=== PATIENT | female | born 1970 | race American Indian/Alaskan Native ===

== ENCOUNTER 2021-12-22 08:20 | Emergency (ER) | payer BC ==
--- NOTE | 2021-12-22 23:26 | Emergency Department Report ---
ED Dizziness HPI - General Chief Complaint: Dizziness Stated Complaint: SOB/PALPITATIONS Time Seen by Provider: 12/22/21 23:15 Source: patient Mode of arrival: Ambulatory Limitations: No Limitations - History of Present Illness Initial Comments: Patient is 51 years old female with history of chronic anemia and history of blood transfusion. Patient presented to the ER complaining of dizziness for the last few days associated with lightheadedness. Patient also reported vaginal bleeding on and off for the last few months. Patient stated that she did not follow-up with any concrete swimming pool installer for this issue however she has been seen by bin filler and had an endoscopy and colonoscopy and she was told that all but normal. Patient denies any chest pain or shortness of breath. No headache or ataxia. MD Complaint: dizziness, lightheadedness -: days(s) Timing: gradual onset Description: lightheadedness Improves With: remaining still Associated Symptoms: denies other symptoms - Related Data Allergies Allergy/AdvReac Type Severity Reaction Status Date / Time No Known Allergies Allergy Verified 12/22/21 10:28 ED Review of Systems ROS: Stated complaint: SOB/PALPITATIONS Other details as noted in HPI Comment: All other systems reviewed and negative Constitutional: denies: chills, fever Respiratory: denies: cough, shortness of breath, SOB with exertion Cardiovascular: palpitations. denies: chest pain Gastrointestinal: denies: abdominal pain, nausea, vomiting, diarrhea, const ipation, hematemesis, melena Genitourinary: abnormal menses Neurological: vertigo. denies: headache, weakness, numbness, paresthesias, confusion, abnormal gait ED Past Medical Hx - Past Medical History Additional medical history: anemia - Surgical History Additional Surgical History: tonsilectomy, c section, lumpectomy - Social History Smoking Status: Never Smoker Substance Use Type: Alcohol ED Physical Exam - General Limitations: No Limitations General appearance: alert, in no apparent distress - Head Head exam: Present: atraumatic, normocephalic, normal inspection - Eye Eye exam: Present: normal appearance - ENT ENT exam: Present: normal exam, normal orophraynx, mucous membranes moist - Neck Neck exam: Present: normal inspection, full ROM. Absent: tenderness, meningismus - Respiratory Respiratory exam: Present: normal lung sounds bilaterally - Cardiovascular Cardiovascular Exam: Present: regular rate, normal rhythm, normal heart sounds - GI/Abdominal GI/Abdominal exam: Present: soft, normal bowel sounds. Absent: distended, tenderness, guarding, rebound, rigid, organomegaly, mass, bruit, pulsatile mass, hernia - Extremities Exam Extremities exam: Present: normal inspection, full ROM, normal capillary refill. Absent: tenderness - Back Exam Back exam: Present: normal inspection, full ROM. Absent: CVA tenderness (R), CVA tenderness (L) - Neurological Exam Neurological exam: Present: alert, oriented X3, CN II-XII intact - Psychiatric Psychiatric exam: Present: normal mood - Skin Skin exam: Present: warm, intact, normal color ED Course Vital Signs 12/22/21 12/22/21 12/22/21 10:29 10:39 23:01 Temperature 98.4 F 98.2 F Pulse Rate 81 81 65 Respiratory 18 16 Rate Blood Pressure 179/83 Blood Pressure 179/83 145/91 [Left] O2 Sat by Pulse 100 100 Oximetry 12/23/21 12/23/21 12/23/21 02:00 02:56 03:11 Temperature 98.3 F 98.2 F 98.4 F Pulse Rate 70 59 L 65 Respiratory 14 21 17 Rate Blood Pressure 166/77 190/88 Blood Pressure 139/78 [Left] O2 Sat by Pulse 100 100 100 Oximetry 12/23/21 05:12 Temperature 98.2 F Pulse Rate 60 Respiratory 20 Rate Blood Pressure Blood Pressure 165/82 [Left] O2 Sat by Pulse 98 Oximetry ED Medical Decision Making - Lab Data Result diagrams: 12/22/21 23:27 12/22/21 23:27 - Radiology Data Radiology results: report reviewed - Medical Decision Making Patient is 51 years old female with history of chronic anemia and history of blood transfusion. Patient presented to the ER complaining of dizziness for the last few days associated with lightheadedness. Patient also reported vaginal bleeding on and off for the last few months. Patient stated that she did not follow-up with any concrete swimming pool installer for this issue however she has been seen by bin filler and had an endoscopy and colonoscopy and she was told that all but normal. Patient denies any chest pain or shortness of breath. No headache or ataxia. Patient labs reviewed and showed a hemoglobin of 6.2. Patient received 2 units of PRBC. Pelvic ultrasound showed multiple fibroids. Patient advised to follow-up with her concrete swimming pool installer in the next 2 to 3 days and to return to the ER if she develop any symptoms. Critical Care Time: Yes Critical care time in (mins) excluding proc time.: 35 Critical care attestation.: If time is entered above; I have spent that time in minutes in the direct care of this critically ill patient, excluding procedure time. ED Disposition Clinical Impression: Symptomatic anemia, Uterine fibroid, Vaginal bleeding Disposition: 01 HOME / SELF CARE / HOMELESS Is pt being admited?: No Condition: Stable Instructions: Abnormal Uterine Bleeding, [id number], Blood Transfusion, Adult, Care After, [id number], Uterine Fibroids Referrals: BRENTON REYES MD [Primary Care Provider] - 3-5 Days
--- NOTE | 2021-12-22 23:56 | XRay Report ---
CHEST 1 VIEW 12/22/2021 11:33 PM INDICATION / CLINICAL INFORMATION: Lightheadedness/Dizziness. COMPARISON: None available. FINDINGS: SUPPORT DEVICES: None. HEART / MEDIASTINUM: No significant abnormality. LUNGS / PLEURA: No significant pulmonary or pleural abnormality. No pneumothorax. ADDITIONAL FINDINGS: No significant additional findings. IMPRESSION: 1. No acute findings. Signer Name: James Kendrick DO Signed: 12/22/2021 11:52 PM Workstation Name: [id number]
[2021-12-23 00:09] LABS: Blood Urea Nitrogen 13 mg/dL (7-17); Calcium 9.2 mg/dL (8.4-10.2); Hemolysis Index 0
[2021-12-23 00:13] LABS: BUN/Creatinine Ratio 19
[2021-12-23 00:24] LABS: INR 1.03 (0.87-1.13)
[2021-12-23 00:31] LABS: Mean Corpuscular HGB Conc 28 % (30-34); Platelet Count 382 K/mm3 (140-440)
[2021-12-23 00:32] LABS: Hematocrit 22.1 % (30.3-42.9); Hemoglobin 6.2 gm/dl (10.1-14.3); Mean Corpuscular Volume 54 fl (79-97); Red Cell Distribution Width 20.7 % (13.2-15.2)
[2021-12-23] MEDS ORDERED: SODIUM CHLORIDE 0.9% 500 ML 500 ML IV ONE (00:54)
[2021-12-23 02:40] LABS: Anisocytosis 1+; Total Cells Counted 100
[2021-12-23 02:41] LABS: Hypochromasia 2+
[2021-12-23 02:42] LABS: Bilirubin,Urine NEG (Negative); Blood,Urine SM (Negative); Color,Urine Yellow (Yellow); Mucus,Urine 2+ /HPF; Protein,Urine <15 mg/dL mg/dL (Negative); RBC,Urine < 1.0 /HPF (0.0-6.0); Urobilinogen,Urine < 2.0 mg/dL (<2.0); WBC,Urine < 1.0 /HPF (0.0-6.0)
--- NOTE | 2021-12-23 03:49 | Ultrasound Report ---
ULTRASOUND PELVIS INDICATION / CLINICAL INFORMATION: vaginal bleeding, anemia. TECHNIQUE: Transabdominal. Duplex Color Doppler used: Yes. COMPARISON: None available FINDINGS: UTERUS: - Appearance: No significant abnormality. - Size (cm): 8.1 x 5.4 x 8.6 - Endometrial Complex (if present): Not well seen secondary to fibroids. Thickness in cm (if measured ) = not measured - Mass or cyst: Multiple fibroids scattered throughout the uterus, measuring up to 3.1 cm. - Additional findings: Prominent nabothian cyst. RIGHT ADNEXA: No significant ovarian cyst or mass. Normal color Doppler blood flow. LEFT ADNEXA: Left ovary is not seen. No adnexal mass. URINARY BLADDER: No significant abnormality. FREE FLUID: None. ADDITIONAL FINDINGS: None. IMPRESSION: 1. Fibroid uterus. Signer Name: James Kendrick DO Signed: 12/23/2021 3:44 AM Workstation Name: [id number]
[2021-12-23] MEDS ORDERED: FUROSEMIDE 40 MG/4 ML INJ IV ONE (03:50)
[2021-12-23 07:05] LABS: Hematocrit 27.1 % (30.3-42.9); Hemoglobin 8.1 gm/dl (10.1-14.3); Mean Corpuscular HGB Conc 30 % (30-34); Platelet Count 340 K/mm3 (140-440); Red Blood Count 4.46 M/mm3 (3.65-5.03)
[2021-12-23 07:25] LABS: Mean Corpuscular Volume 61 fl (79-97); Red Cell Distribution Width 29.8 % (13.2-15.2)
[2021-12-23 08:44] LABS: Anisocytosis 1+; Basophils % (Manual) 0 % (0.0-1.8); Burr Cells 1+; Hypochromasia 2+; Ovalocytes 2+; Platelet Estimate Consistent w Auto; Target Cells Few; Total Cells Counted 100
[2021-12-23 09:41] VITALS: BP 171/79
--- NOTE | 2021-12-27 18:17 | Electrocardiograph Report ---
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
== END 2021-12-23 09:00 | disposition home or self-care (01) ==
LOC: ED 08:20
DX: D64.89 Other specified anemias (principal); D25.9 Leiomyoma of uterus, unspecified; N93.9 Abnormal uterine and vaginal bleeding, unspecified
CPT/HCPCS: 36415; 36430; 71045; 76830; 80048; 81001; 82140; 84484; 85007; 85014; 85018; 85025; 85610; 86850; 86900; 86901; 86920; 93005; 96374; 99291; J1940; J7040; P9016; 99284